=== PATIENT | male | born 1960 | race Hispanic/Latino ===

== ENCOUNTER 2017-02-08 09:53 | Day surgery (SDC) | payer OTHER ==
[~2017-02-08] VITALS: Ht 167.6 cm; Wt 88.5 kg
[~2017-02-08 09:53] MED LIST: ADVAIR DISK1 IN; HCTZ/TRIAMT1 TA1 OR; LISINOP/HCTZ1 TA1 PO; NORVASC PO
[2017-02-08] MEDS ORDERED: PRAVASTATIN20 MG PO (10:26)
[2017-02-08 12:09] VITALS: BP 124/65
== END 2017-02-08 12:15 | disposition home or self-care (01) | DRG 379 ==
LOC: ENDO 09:53 → ORM 12:00 → ENDO 12:05 → ORM 12:30
PROVIDERS: ATTEND Internal Medicine Gastroenterology
PROC: 0DBH8ZX Excision of Cecum, Via Natural or Artificial Opening Endoscopic, Diagnostic (ICD-10-PCS; principal; 2017-02-08)
PROC: 0DBL8ZX Excision of Transverse Colon, Via Natural or Artificial Opening Endoscopic, Diagnostic (ICD-10-PCS; 2017-02-08)
DX: K57.31 Diverticulosis of large intestine without perforation or abscess with bleeding (principal); K64.8 Other hemorrhoids; K64.4 Residual hemorrhoidal skin tags; D12.0 Benign neoplasm of cecum; D12.3 Benign neoplasm of transverse colon; K21.9 Gastro-esophageal reflux disease without esophagitis; I10 Essential (primary) hypertension; J45.909 Unspecified asthma, uncomplicated; E78.00 Pure hypercholesterolemia, unspecified